=== PATIENT | male | born 1965 | race Caucasian/White ===

== ENCOUNTER 2019-01-02 13:30 | Emergency (ER) | payer OTHER ==
[~2019-01-02] VITALS: Ht 167.6 cm; Wt 63.5 kg
[2019-01-02 14:28] LABS: ABSOLUTE NEUTROPHILS 4.6 thou/uL (1.4-8.2); BASOPHILS 0.4 % (0.0-2.0); EOSINOPHILS 2.3 % (0.0-3.0); HEMATOCRIT 24.3 % (42.0-52.0); HEMOGLOBIN 8.3 gm/dL (14.0-18.0); MCH 29.4 pg (26.0-34.0); MCHC 33.9 g/dL (28.0-37.0); MCV 86.8 fL (80.0-100.0); PLATELET COUNT 253 thou/uL (150-400); POLYS 65.3 % (36.0-66.0); RBC 2.81 mil/uL (4.50-6.00); WBC 7.1 thou/uL (4.0-11.0)
[2019-01-02 14:33] LABS: ANION GAP 9 mmol/L (7-16); BUN 62 mg/dL (7-18); CALCIUM 8.6 mg/dL (8.5-10.1); CHLORIDE 97 mmol/L (98-107); CO2 28 mmol/L (21-32); CREATININE 1.5 mg/dL (0.7-1.3); GLUCOSE 216 mg/dL (74-106); POTASSIUM 5.1 mmol/L (3.5-5.1); SODIUM 134 mmol/L (136-145)
[2019-01-02 14:42] LABS: MAGNESIUM 2.4 mg/dL (1.8-2.4); SGOT 29 U/L (15-37); SGPT 27 U/L (30-65); TOTAL BILIRUBIN 0.2 mg/dL (<0.1-1.0); TOTAL PROTEIN 7.7 g/dL (6.4-8.2); TROPONIN-I <0.06 ng/mL (<0.06)
[2019-01-02 14:53] LABS: URINE BILIRUBIN NEGATIVE (Negative); URINE BLOOD NEGATIVE (Negative); URINE CLARITY CLEAR; URINE COLOR YELLOW; URINE GLUCOSE-RANDOM* NEGATIVE (Negative); URINE KETONES NEGATIVE (Negative); URINE LEUKOCYTES-REFLEX NEGATIVE (Negative); URINE NITRITE-REFLEX NEGATIVE (Negative); URINE PROTEIN (DIPSTICK) 1+ (Negative); URINE UROBILINOGEN 0.2 E.U./dl (0.2-1.0)
[2019-01-02 14:58] LABS: AMP/METHAMP Negative (Negative); BARBITURATES Negative (Negative); BENZODIAZEPINES Negative (Negative); COCAINE Negative (Negative); METHADONE Negative (Negative); OPIATES POSITIVE (Negative); PCP Negative (Negative)
[2019-01-02 15:08] LABS: BACTERIA-REFLEX None Seen /HPF (None Seen); CASTS None Seen /LPF (None Seen); SQUAMOUS 0-3 Few /LPF (0-3); URINE RBC 0-2 Rare /HPF (0-2); URINE WBC-REFLEX None Seen /HPF (0-5)
[2019-01-02 15:09] LABS: CRYSTALS None Seen /LPF (None Seen)
[2019-01-02] MEDS ORDERED: AMLODIPINE BESY10 MG PO (15:16)
[2019-01-02] MEDS ORDERED: LASIX 40 MG TAB40 M2 PO (15:17)
[2019-01-02] MEDS ORDERED: LYRICA 50 MG50 MG PO (15:18)
[2019-01-02] MEDS ORDERED: VITAMIN B-1100 M1 PO (15:18)
[2019-01-02] MEDS ORDERED: SYNTHROID25 MC1 PO (15:18)
[2019-01-02] MEDS ORDERED: CHLORTHALIDONE25 MG PO (15:19)
[2019-01-02] MEDS ORDERED: CLONIDINE0.1 PO (15:19)
[2019-01-02] MEDS ORDERED: PROAIR HFA8.5 GM PO (15:21)
[2019-01-02] MEDS ORDERED: NOVOLOG100 UNIT/1 SUBQ (15:23)
[2019-01-02] MEDS ORDERED: CARVEDILOL12.5 MG PO (15:24)
[2019-01-02] MEDS ORDERED: BISACODYL SUPP10 MG RECTAL (15:24)
[2019-01-02] MEDS ORDERED: METFORMIN HCL500 MG PO (15:25)
[2019-01-02] MEDS ORDERED: ZANAFLEX4 MG PO (15:28)
[2019-01-02 16:25] VITALS: BP 134/61
--- NOTE | 2019-01-03 07:51 | EKG ---
[place] [address] [place] [address] ELECTROCARDIOGRAM REPORT Name: DANIA HOLLIS Room #: [facility] [id number] ������������������ Admission: 01/02/19 ������������������ Attend Phys: Discharge: 01/02/19 ������������������ Date of : 63 Report #: [id number] ����������������������������������������������������������������� [id number] THIS REPORT FOR: //name// [facility] ED Test Date: 2019-01-02 Test Time: 14:09:42 Pat Name: DANIA HOLLIS Department: Room: Gender: M [employer]: : 1965 Requested By: Renard Loya Order Number: [id number] MD: Guido Luna Measurements Intervals [place] Rate: 62 P: 55 FL: 134 QRS: 27 QRSD: 100 T: 90 QT: 469 QTc: 477 Interpretive Statements Sinus rhythm ST elev, probable normal early repol pattern Borderline prolonged QT interval Baseline wander in lead(s) V1 No previous ECG available for comparison Electronically Signed On 01-03-2019 7:50:51 CDT by Guido Luna [email or web address] ��������������������������������������������� <ELECTRONICALLY SIGNED> ���������������������������������������� By: Guido Luna MD, [facility] ��������������������������������������������� 01/03/19 0750 D: [id number] Guido Luna MD, FACC /EPI
== END 2019-01-02 17:55 | disposition home or self-care (01) ==
LOC: ER 13:30
PROVIDERS: Emergency Medicine
DX: R41.82 Altered mental status, unspecified (principal); T50.905A Adverse effect of unspecified drugs, medicaments and biological substances, initial encounter; Y92.89 Other specified places as the place of occurrence of the external cause; D64.9 Anemia, unspecified; E11.40 Type 2 diabetes mellitus with diabetic neuropathy, unspecified; R74.8 Abnormal levels of other serum enzymes; I12.9 Hypertensive chronic kidney disease with stage 1 through stage 4 chronic kidney disease, or unspecified chronic kidney disease; E11.22 Type 2 diabetes mellitus with diabetic chronic kidney disease; N18.9 Chronic kidney disease, unspecified; F32.9 Major depressive disorder, single episode, unspecified; F41.9 Anxiety disorder, unspecified; W19.XXXA Unspecified fall, initial encounter; Y93.89 Activity, other specified; Y99.8 Other external cause status